=== PATIENT | female | born 1940 | race Hispanic/Latino ===

== ENCOUNTER 2017-06-11 08:27 | Day surgery (SDC) | payer MEDICARE ==
[2017-06-04 10:22] VITALS: BMI 25.0
[2017-06-11] MEDS ORDERED: Propofol 10 mg/ml Inj (20 ML) ONE (09:59)
[2017-06-11] MEDS ORDERED: Sodium Chloride 0.9% 1,000 ML IV SCH (11:15)
[2017-06-11 12:01] VITALS: RESP 18
[2017-06-11 12:29] VITALS: BP 110/75; PULSE 63; TEMP 97.8; O2SAT 100
== END 2017-06-11 13:30 | disposition home or self-care (01) ==
LOC: ENDO 08:27
PROVIDERS: ATTEND Specialist
DX: Z12.11 Encounter for screening for malignant neoplasm of colon (principal); K57.30 Diverticulosis of large intestine without perforation or abscess without bleeding; K64.8 Other hemorrhoids
CPT/HCPCS: 45378; J2704; J7040 ×2

== ENCOUNTER 2018-02-12 11:57 | Day surgery (SDC) | payer MEDICARE ==
[2018-02-06 14:59] VITALS: BMI 20.2
[2018-02-12 12:38] LABS: BLOOD UREA NITROGEN 16 mg/dL (7-21); CALCIUM 10.1 mg/dL (8.4-10.5); GFR NON-AFRICAN AMERICAN > 60
[2018-02-12 12:41] LABS: BASO # 0.01 K/mm3 (0.0-2.0); BASO % 0.1 % (0.0-3.0); EOS % 0.3 % (1.5-5.0); GRAN # 4.79 (1.4-6.5); HEMOGLOBIN 15.1 g/dL (12.0-16.0); LYMPH # 1.8 (1.2-3.4); LYMPH % 24.6 % (22.0-35.0); MEAN CELL VOLUME 94.5 fl (80.0-105.0); MEAN CORPUSCULAR HEMOGLOBIN 31.9 pg (25.0-35.0); MEAN CORPUSCULAR HGB CONC 33.7 g/dl (31.0-37.0); MONO # 0.7 (0.1-0.6); RBC 4.74 10^6/uL (3.5-6.1); RED CELL DISTRIBUTION WIDTH 14.4 % (11.5-14.5); WHITE BLOOD COUNT 7.3 10^3/uL (4.5-11.0)
[2018-02-12 12:44] LABS: INR 1.1; PROTHROMBIN TIME 12.7 SECONDS (9.4-12.5)
[2018-02-12 12:45] LABS: PARTIAL THROMBOPLASTIN TIME 32.6 Seconds (25.1-36.5)
[2018-02-12] MEDS ORDERED: Lidocaine 1% 5ml Abboject ONE (14:14)
[2018-02-12] MEDS ORDERED: Midazolam 2 MG/2 ML VIAL ONE (14:14)
[2018-02-12] MEDS ORDERED: Sodium Chloride 0.45% 1,000 ML IV SCH (15:00)
[2018-02-12] MEDS ORDERED: Midazolam 2 MG/2 ML VIAL IVP ONE (15:34)
--- NOTE | 2018-02-12 16:55 | US ---
PROCEDURE: Ultrasound-guided right thyroid fine needle aspiration biopsy. CLINICAL HISTORY: Solitary 12 mm right thyroid nodule. Evaluate for malignancy PHYSICIAN(S): Jesus Foote M.D. TECHNIQUE: The relative risks and indications for the procedure were explained to the patient and consent obtained. The patient was placed supine on the stretcher with the neck extended and preliminary sonography of the thyroid performed. This reveal a 12 mm heterogeneous right thyroid nodule. The remainder of the thyroid parenchyma is homogeneous in echotexture. The neck was prepped and draped in the usual sterile fashion. Conscious sedation and monitoring were provided throughout the procedure by a nurse. 1% Xylocaine was used to anesthetize the skin and soft tissues at the access site. Three passes with a 22-gauge needle were performed under ultrasound guidance for fine needle aspiration of the 12 mm hypoechoic nodule in the right thyroid. The slides were reviewed by pathology and deemed adequate. The patient tolerated the procedure well. IMPRESSION: 1. Ultrasound guided fine needle aspiration of a 12 mm hypoechoicnodule in the right thyroid.
[2018-02-12 16:56] VITALS: BP 108/68
[2018-02-12 17:00] VITALS: PULSE 60; RESP 20; TEMP 98; O2SAT 98
== END 2018-02-12 17:00 | disposition home or self-care (01) ==
LOC: SDS 11:57
PROVIDERS: ATTEND Radiology Vascular & Interventional Radiology
DX: E04.1 Nontoxic single thyroid nodule (principal)
CPT/HCPCS: 10022; 36415; 76942; 80048; 85025; 85610; 85730; 88173; 88305; 99152; 99153; J2250; J2405; J3010; J7030